=== PATIENT | male | born 1975 | race Caucasian/White ===

== ENCOUNTER 2016-11-22 21:26 | Emergency (ER) | payer BC ==
[2016-11-22 23:14] LABS: Hematocrit 44 % (42-52); Hemoglobin 14.4 g/dl (14.0-18.0); Mean Corpuscular HGB Conc 33 g/dl (31-36); Mean Corpuscular Hemoglobin 30 pg (27-31); Mean Corpuscular Volume 91 fL (80-94); Mean Platelet Volume 10 um3 (7.4-10.4); Red Blood Count 4.84 10^6/ul (4.0-5.4); Red Cell Distribution Width 14 % (10.5-15)
[2016-11-22 23:19] LABS: Comments Flag Yes
[2016-11-22 23:22] LABS: Add Diff/Slide Review? Slide Review Added
[2016-11-22 23:23] LABS: Albumin 3.8 g/dL (3.2-5.2); C Reactive Protein 111.62 mg/L (< 5.00); Calcium 9.1 mg/dL (8.6-10.3); EGFR African American 121.6 (>60); EGFR Non-African American 94.5 (>60); Globulin 3.7 g/dL (2-4); Magnesium 1.8 mg/dL (1.9-2.7); Total Bilirubin 0.4 mg/dL (0.2-1.0); Total Protein 7.5 g/dL (6.4-8.9)
[2016-11-22 23:49] LABS: Potassium 3.8 mmol/L (3.5-5.0)
[2016-11-22] MEDS ORDERED: Iohexol 300* (CONTRAST) 10 ML SDV IV ONE (23:50)
--- NOTE | 2016-11-23 00:06 | ED ---
Kelsey Garcia Edward, scribed for Yuan Mike MD on 11/22/16 at 2231 . ED Suture/Wound Check - HPI Summary HPI Summary: 41 y/o male presents to ED seeking wound recheck at his belly button. Pt c/o drainage from the site, a burning pain rated at a 2/10 at triage, and a bad odor. Starting last night, the patient has been feeling weakness, nausea, fevers and chills. Patient had a umbilical hernia repair 6.5 weeks ago ([facility]); it was re-opened 3 days ago. Five days after the surgery the vacu- drain clogged and his ABD expanded 12 inches overnight, which blew the sutures out. - History Of Current Complaint Chief Complaint: EDAbdPain Stated Complaint: SURGICAL SITE NEEDS CHECKING Time Seen by Provider: 11/22/16 22:24 Hx Obtained From: Patient Severity: Mild Pain Intensity: 2 Pain Scale Used: 0-10 Numeric - Allergies/Home Medications Allergies/Adverse Reactions: Allergies Allergy/AdvReac Type Severity Reaction Status Date / Time Doxycycline Allergy Hives Verified 11/22/16 21:37 Sulfamethoxazole Allergy Hives Verified 11/23/16 08:20 w/Trimethoprim [From Bactrim] Home Medications: Home Medications Ibuprofen [Ibuprofen 200 MG] 200 mg PO TID PRN 11/23/16 [History Confirmed 11/23] PMH/Surg Hx/FS Hx/Imm Hx Previously Healthy: No Musculoskeletal History: Denies: Hx Scoliosis Neurological History: Denies: Hx Headaches, Other Neuro Impairments/Disorders - Surgical History Surgery Procedure, Year, and Place: hernia repair. lithotripsy/left stent insertion Infectious Disease History: No Infectious Disease History: Denies: Traveled Outside the US in Last 30 Days - Family History Known Family History: Negative: Cardiac Disease - Social History Occupation: Employed Full-time Lives: With Family Alcohol Use: None Hx Substance Use: No Substance Use Type: Reports: None Review of Systems Positive: Fever, Chills Eyes: Negative ENT: Negative Cardiovascular: Negative Respiratory: Negative Positive: Abdominal Pain - Mild , Nausea Genitourinary: Negative Musculoskeletal: Negative Skin: Other - Surgical site on belly button- drainage and foul odor Positive: Weakness Psychological: Normal All Other Systems Reviewed And Are Negative: Yes Physical Exam Triage Information Reviewed: Yes Vital Signs On Initial Exam: Initial Vitals Temp Pulse Resp BP Pulse Ox 99.7 F 107 16 144/99 97 11/22/16 21:35 11/22/16 21:35 11/22/16 21:35 11/22/16 21:35 11/22/16 21:35 Vital Signs Reviewed: Yes Appearance: Positive: Ill-Appearing, Pain Distress - mild Skin: Positive: Warm, Other - large mid abdominal gaping wound, foul smelling purulent drainage Head/Face: Positive: Normal Head/Face Inspection Eyes: Positive: EYAL ENT: Positive: Hearing grossly normal Neck: Positive: Supple Respiratory/Lung Sounds: Positive: Breath Sounds Present Cardiovascular: Positive: Tachycardia Abdomen Description: Positive: Soft, Other: - open draining abd wound Bowel Sounds: Positive: Present Musculoskeletal: Positive: Strength/ROM Intact Neurological: Positive: Alert, Oriented to Person Place, Time Diagnostics - Vital Signs Vital Signs Temp Pulse Resp BP Pulse Ox 11/22/16 21:35 99.7 F 107 16 144/99 97 - Laboratory Lab Results: Lab Results 11/22/16 11/22/16 11/22/16 Range/Units 22:40 22:40 22:40 WBC 17.0 H (3.5-10.8) 10^3/ul RBC 4.84 (4.0-5.4) 10^6/ul Hgb 14.4 (14.0-18.0) g/dl Hct 44 (42-52) % MCV 91 (80-94) fL MCH 30 (27-31) pg MCHC 33 (31-36) g/dl RDW 14 (10.5-15) % Plt Count 254 (150-450) 10^3/ul MPV 10 (7.4-10.4) um3 Neut % (Auto) 68.8 (38-83) % Lymph % (Auto) 17.6 L (25-47) % Mercer % (Auto) 11.3 H (1-9) % Eos % (Auto) 1.9 (0-6) % Baso % (Auto) 0.4 (0-2) % Absolute Neuts (auto) 11.7 H (1.5-7.7) 10^3/ul Absolute Lymphs (auto) 3.0 (1.0-4.8) 10^3/ul Absolute Monos (auto) 1.9 H (0-0.8) 10^3/ul Absolute Eos (auto) 0.3 (0-0.6) 10^3/ul Absolute Basos (auto) 0.1 (0-0.2) 10^3/ul Absolute Nucleated RBC 0.01 10^3/ul Nucleated RBC % 0 Sodium 138 (133-145) mmol/L Potassium 3.8 (3.5-5.0) mmol/L Chloride 103 (101-111) mmol/L Carbon Dioxide 26 (22-32) mmol/L Anion Gap 9 (2-11) mmol/L BUN 15 (6-24) mg/dL Creatinine 0.88 (0.67-1.17) mg/dL Est GFR ( Amer) 121.6 (>60) Est GFR (Non-Af Amer) 94.5 (>60) BUN/Creatinine Ratio 17.0 (8-20) Glucose 98 (70-100) mg/dL Lactic Acid 1.3 (0.5-2.0) mmol/L Calcium 9.1 (8.6-10.3) mg/dL Magnesium 1.8 L (1.9-2.7) mg/dL Total Bilirubin 0.40 (0.2-1.0) mg/dL AST 15 (13-39) U/L ALT 13 (7-52) U/L Alkaline Phosphatase 56 (34-104) U/L C-Reactive Protein 111.62 H (< 5.00) mg/L Total Protein 7.5 (6.4-8.9) g/dL Albumin 3.8 (3.2-5.2) g/dL Globulin 3.7 (2-4) g/dL Albumin/Globulin Ratio 1.0 (1-3) Result Diagrams: 11/22/16 22:40 11/22/16 22:40 Lab Statement: Any lab studies that have been ordered have been reviewed, and results considered in the medical decision making process. - CT ABD/PEL CT CT Interpretation: Positive (See Comments) - Inflammatory collection in the subcutaneous tissues deep to the incisional wound appears to represent an incompletely formed abscess. This process is amenable to percutaneous aspiration /drainage. CT Interpretation Completed By: Radiologist Course/Dx - Course Assessment/Plan: 41 y/o male presents to ED seeking wound recheck at his belly button. Pt c/o drainage from the site, a burning pain rated at a 2/10 at triage , and a bad odor. Starting last night, the patient has been feeling weakness, nausea, fevers and chills. Patient had a umbilical hernia repair 6.5 weeks ago ( [facility]); it was re-opened 3 days ago. Five days after the surgery the vacu-drain clogged and his ABD expanded 12 inches overnight, which blew the sutures out. ABD/PEL CT shows an inflammatory collection in the subcutaneous tissues deep to the incisional wound appears to represent an incompletely formed abscess. This process is amenable to percutaneous aspiration/drainage. Discussed case with Dr. Miles Gates (Surgery) at 01:45. Awaiting Dr. Gates consult. Patient will be signed out to Dr. Amezquita at shift change. - Clinical Impression Provider Diagnoses: Abscess of postoperative wound of abdominal wall - Physician Notifications Discussed Care Of Patient With: Miles Gates Time Discussed With Above Provider: 01:45 Discharge - Discharge Plan Condition: Stable Disposition: HOME Discharge Disposition Comment: Sign out to Dr. Amezquita at shift change. Awaiting Dr. Gates consult Prescriptions: Ciprofloxacin TAB* [Cipro Tab*] 500 mg PO BID #20 tab Patient Education Materials: Wound Infection (ED) Referrals: Miles Gates MD [Medical Doctor] - Omar Robertson MD [Medical Doctor] - Additional Instructions: Keep your appointment with your surgeon tomorrow. The documentation as recorded by the Kelsey borjas Edward accurately reflects the service I personally performed and the decisions made by , Yuan Mike MD.
[2016-11-23] MEDS ORDERED: Vancomycin(*) 1,000 MG in NS 0.9% 250 ML* 250 ML IVPB ONE (01:09)
--- NOTE | 2016-11-23 08:02 | RAD ---
CLINICAL HISTORY: Rule out abdominal abscess, history of surgery for umbilical hernia and healing problems COMPARISON: September 22, 2016 TECHNIQUE: Multiple contiguous axial CT scans were obtained of the abdomen and pelvis after the administration of intravenous contrast. Coronal and sagittal multiplanar reformations are submitted for review. Oral contrast was administered. Delayed images were obtained through the abdomen and pelvis. FINDINGS: LUNG BASES: The lung bases are clear. LIVER: The liver is diffusely low in attenuation compared to the spleen. There are no focal hepatic parenchymal masses. BILE DUCTS: There is no intrahepatic or extrahepatic biliary dilatation. GALLBLADDER: The gallbladder is normal, without pericholecystic inflammatory change. PANCREAS: The pancreas is normal, without mass or ductal dilatation. SPLEEN: Normal in size and appearance. UPPER GI TRACT: Evaluation of the gastrointestinal tract is limited by incomplete gastric distention. The upper GI tract is unremarkable. SMALL BOWEL AND MESENTERY: The small bowel is normal in contour, course, and caliber. There is no obstruction or dilatation. COLON: The colon is normal in contour, course, caliber. There is no pericolonic inflammatory change. ADRENALS: Normal bilaterally. KIDNEYS: The kidneys are normal in shape, size, contour, and axis. There is no hydronephrosis or nephrolithiasis. BLADDER: The bladder is smooth in contour. PELVIC ORGANS: The prostate gland is normal. The seminal vesicles are symmetric. AORTA: The aorta is normal. IVC: Unremarkable LYMPH NODES: There is no lymphadenopathy by size criteria. ABDOMINAL WALL: There is a defect of the anterior abdominal wall consistent with a dehiscent surgical wound given the history. This defect to a loculated fluid collection measuring approximately 8.5 x 6.5 x 3.8 cm in size. Superficial to the anterior abdominal wall musculature. Additionally, there is a small fat containing ventral hernia superior to the umbilicus. There is mild stranding of the mesenteric fat just distal to the hernia. There is a small fat-containing inguinal hernia on the left. BONES AND SOFT TISSUES: As noted above, there is no loculated fluid collection. Degenerative changes noted of the spine. OTHER: None IMPRESSION: 1. DIFFUSE IMPROVEMENT OF THE ANTERIOR ABDOMINAL WALL COMMUNICATING WITH A LOCULATED FLUID COLLECTION MEASURING UP TO 8.5 CM IN SIZE, CONCERNING FOR ABSCESS, SUPERFICIAL TO THE ANTERIOR ABDOMINAL WALL. 2. ADDITIONALLY, THERE IS A SMALL FAT-CONTAINING VENTRAL HERNIA SUPERIOR TO THE UMBILICUS WITH INFLAMMATORY CHANGE OF THE MESENTERIC FAT ALONG THE HERNIA.. 3. FATTY LIVER
[2016-11-23 09:05] VITALS: BP 134/85
--- NOTE | 2016-11-23 23:05 | CONS ---
CC: Dr. Jeanna Deleon, General Surgeon, [place], [place]; [facility]; [facility]; [facility] * CONSULTATION REPORT/PROCEDURE REPORT: DATE OF CONSULT: 11/23/16 The patient seen in the emergency room. HISTORY OF PRESENT ILLNESS: I was contacted overnight by the emergency room in order to evaluate Mr. Ervin, a 41-year-old gentleman, who presents to the emergency room with complaints of malaise and foul-smelling drainage from the abdominal wound. Workup in the emergency room included labs which showed an elevated white blood cell count as well as a CT scan. The patient underwent an open ventral hernia repair with mesh approximately 6 months ago for a recurrent umbilical hernia. This was done at the [facility]. The patient's postoperative course has been complicated with wound dehiscence. He has gone through at least 2 courses of antibiotics, wound care that has included a vacuum dressing. The patient had visiting nurses and now continues to follow up at his surgeon's office for vacuum dressing changes. The patient had to go on a trip to [place] as a family obligation and took as much dressing material as he could. When he started having symptoms of discomfort and concerns for a possible infection, he called his trip short and drove back home, stopping in [place] at the hospital. The patient describes a course of his postoperative care with pictures and descriptions where the wound showed mild cellulitic changes as well as skin necrosis that required debridement in the surgeon's office. The patient denies any GI symptoms. He denies any fevers. He had a low-grade fever in the emergency room. His general complaint again is malaise and just feeling run down. It is not clear if he has had any night sweats. PAST MEDICAL HISTORY: Morbid obesity. The patient does not have diabetes. PAST SURGICAL HISTORY: As described above. MEDICATION LIST: Reviewed. SOCIAL HISTORY: The patient is a nonsmoker, works as a echocardiography radiology technologist. He has been out of work because of this. REVIEW OF SYSTEMS: No fever, no chills. No shortness of breath or chest pain. No GI symptoms. No dysuria or change in bowel habits. Abdominal pain mostly in the upper abdomen. No bleeding or clotting disorders. The patient has lost about 40 pounds in the last year and he has been trying to lose it. No metabolic or endocrine disorders. PHYSICAL EXAM: The patient had a low-grade temperature, he is currently afebrile. Vital signs are stable. He had tachycardia upon arrival, currently his heart rate is in the 90s. He is alert and oriented x3, he is in no apparent distress, lying in the stretcher, comfortable. Head, Eyes, Ears, Nose , and Throat: Normocephalic and atraumatic. Sclerae anicteric. Mucous membranes are dry. Abdomen is soft, obese. Dressing removed, midline incision shows dehiscence with an open abdominal wound that measures 18 x 7 x 9 cm deep, it extends through subcutaneous fat and down to the muscle layer. Sutures appreciated. Sterilely, this area was examined and Yankauer suction placed and fluid removed. The wound was then irrigated. It was bluntly opened at the superior aspect and somewhat at the inferior aspect at the subcutaneous fat level to allow for better visualization of the base of the wound, which showed again fascia and rectus muscle minimally exposed. It tunnels in the superior aspect and the blunt opening of this subcutaneous adipose tissue made for better evaluation. I could not probe into the abdomen. No mesh was identified. Some necrotic fat along the left side of the incision site, this was not debrided. No foul-smelling drainage at this time. Periwound skin is intact without erythema or dermatitis. Rectal exam not performed. Extremities within normal limits. DIAGNOSTIC STUDIES/LAB DATA: Labs reviewed. CT scan reviewed showing a fluid collection at the base of this wound that was suctioned off just now. Intraabdominally, no evidence of bowel inflammation. IMPRESSION: Surgical site dehiscence in a gentleman with recurrent hernia and obesity. He does represent a high risk for wound infection recurrence. Currently no mesh is exposed and I described that this may not have to be removed and this is our hope. I discussed this case with his surgeon who is going to see him later today. The wound was redressed with vacuum dressing by me. I placed a white foam dressing followed by black foam dressing, and connected to 125 mmHg, KCI vacuum- type dressing canister. PLAN/RECOMMENDATIONS: Topical wound care. The patient may benefit from Iodosorb if he persists with a possible pseudomonas infection. This does not show evidence of pseudomonas infection at this time, but I did see evidence on photos. The patient did go home on antibiotics and recommended Cipro for now. He could follow up with Infectious Disease for possible PICC placement. If this is necessary, he could certainly follow up at the wound center at [facility] by me and we could follow his wound care with regular vacuum dressings. If not cleared, the patient will need surgery in the future, but certainly now it would not be the appropriate time. The patient is hemodynamically stable despite elevated white blood cell count and is okay for discharge. This case was discussed with the emergency room physician and with the patient's surgeon. TIME SPENT: Overall, approximately 65 minutes were spent with the patient going over the plan of care, and additional time for discussion with the patient 's doctors. [id number]/[facility] #: [id number] JJ
--- NOTE | 2016-11-24 09:04 | PN ---
Progress Note - Progress Note Date of Service: 11/22/16 Note: Patient was seen in ED for post-surgical wound re-check and discharged on cipro. Wound culture PCR was negative for MRSA and staph aureus. No further changes needed at this time.
--- NOTE | 2016-11-26 10:01 | PN ---
Progress Note - Progress Note Date of Service: 11/22/16 Note: Patient started on cipro for wound at d/c. culture results showed positive enterococcus faecalis and pseudomonas aeruginosa 2+. bacteria susceptible to cipro. aeruginosa is intermediate. no other antimicrobial agents to switch too besides IV medications. Patient has had improvement when spoken to at 10am. states he is following up with surgery and wound clinic. given names of bacteria for follow up care purposes. had pic line placed and has had two doses of Invanz (ertapenam) which drugs in the same class did show susceptibility by bacteria. No further change needed at this time. Aware of worsening signs and symptoms to watch out for.
--- NOTE | 2016-11-27 08:32 | ED ---
Progress - Progress Note Progress Note: Pt's wound reveals staph aureus (already noted) - pseudomonas aeruginosa and enterococcocus faecalis - pt was started on cipro which is appropriate coverage. Note indicates this cx from a post-op wound and Dr. Gates consulted and referred to [facility] clinic but pt has not f/u'd up outpt as his inurance is not accepted at [facility]'s office. He followed-up with his original surgeon who he reports reluctantly referred him to [place] wound [facility] and an order for a PICC line. Pt requesting results go to both [facility] wound clinic as well as [facility] as he hasn't heard back from [place] yet and may go to [facility] instead. Feeling okay today - aware of danger s/sx of when to return to ED. Course/Dx - Diagnoses Provider Diagnoses: Abscess of postoperative wound of abdominal wall - Provider Notifications Time Discussed With Above Provider: 01:45 Instructed by Provider To: Admit As Inpatient - Discuss with the hospitalist
== END 2016-11-23 09:12 | disposition home or self-care (01) ==
LOC: ED 21:26
DX: T81.4XXA Infection following a procedure, initial encounter (principal); L02.211 Cutaneous abscess of abdominal wall; R50.9 Fever, unspecified; R11.0 Nausea; R53.1 Weakness; Z88.1 Allergy status to other antibiotic agents; Z88.2 Allergy status to sulfonamides
CPT/HCPCS: 36415; 74177; 80053; 83605; 83735; 85025; 86140; 87070; 87077; 87186; 87205; 87640; 87641; 96365; 96366; 99283; J2543; J3370; Q9967

== ENCOUNTER 2016-12-13 20:40 | Emergency (ER) | payer BC ==
[2016-12-13 20:47] VITALS: BP 146/102
--- NOTE | 2016-12-13 23:41 | ED ---
ICristi,Joelle, scribed for Yuan Mike MD on 12/13/16 at 2200 . Complex/Multi-Sys Presentation - HPI Summary HPI Summary: This 41 y/o male presents to ED for drainage/bleeding from abd wound since today PM. PMHx includes recurrent umbilical hernia s/p open ventral hernia surgery about 6 months ago. Pt was previously evaluated and had debridemnet done by Dr. Gates in ED on 11/22/2016 for foul-smelling drainage from the surgery wound. Pt visited the wound clinic today to have wound vac and packing done, and noted blood draining from the wound after the appointment. - History Of Current Complaint Chief Complaint: EDGeneral Time Seen by Provider: 12/13/16 21:48 Hx Obtained From: Patient, Medical Records Onset/Duration: Sudden Onset, Still Present Timing: Constant - Allergies/Home Medications Allergies/Adverse Reactions: Allergies Allergy/AdvReac Type Severity Reaction Status Date / Time Doxycycline Allergy Hives Verified 11/22/16 21:37 Sulfamethoxazole Allergy Hives Verified 11/23/16 08:20 w/Trimethoprim [From Bactrim] PMH/Surg Hx/FS Hx/Imm Hx Endocrine/Hematology History: Denies: Hx Diabetes GI History: Reports: Other GI Disorders - Recurrent umbilical hernia s/p mesh placement and surgery History: Reports: Hx Kidney Stones Musculoskeletal History: Denies: Hx Scoliosis Neurological History: Denies: Hx Headaches, Other Neuro Impairments/Disorders - Surgical History Surgery Procedure, Year, and Place: hernia repair. lithotripsy/left stent insertion Infectious Disease History: No Infectious Disease History: Denies: Traveled Outside the US in Last 30 Days - Family History Known Family History: Negative: Cardiac Disease - Social History Alcohol Use: None Hx Substance Use: No Substance Use Type: Reports: None Hx Tobacco Use: No Smoking Status (MU): Never Smoked Tobacco Review of Systems Negative: Fever Positive: Other - open abd wound secondary to open ventral hernia surgery, bleeding All Other Systems Reviewed And Are Negative: Yes Physical Exam Triage Information Reviewed: Yes Vital Signs On Initial Exam: Initial Vitals Temp Pulse Resp BP Pulse Ox 97.9 F 88 16 146/102 98 12/13/16 20:46 12/13/16 20:46 12/13/16 20:46 12/13/16 20:46 12/13/16 20:46 Vital Signs Reviewed: Yes Appearance: Positive: No Pain Distress, Obese Skin: Positive: Warm, Other - slightly oozing, healing granulating mid abd wall abscess Eyes: Positive: EYAL ENT: Positive: Hearing grossly normal Neck: Positive: Supple Respiratory/Lung Sounds: Positive: Breath Sounds Present Cardiovascular: Positive: RRR Abdomen Description: Positive: Nontender, Soft Bowel Sounds: Positive: Present Neurological: Positive: Alert, Oriented to Person Place, Time Diagnostics - Vital Signs Vital Signs Temp Pulse Resp BP Pulse Ox 12/13/16 20:46 97.9 F 88 16 146/102 98 - Laboratory Lab Statement: Any lab studies that have been ordered have been reviewed, and results considered in the medical decision making process. Re-Evaluation - Re-Evaluation First Eval Change: Improved - wound repacked Complex Multi-Symp Course/Dx Assessment/Plan: This 41 y/o male presents to ED for bleeding from chronic surgery wound on ventral abd. PMHx is significant for recurrent umbilical hernia s/p ventral hernia repair at [place]. Pt was last seen on 11/22/[address] Ma for foul-smelling drainage from the wound. Blood work is offered to r/ o any infection and to see if pt is hemodynamically stable, but pt refuses and only wants wound cleaning. Pt remains stable during ED course, and is discharged after wound cleaning. - Diagnoses Provider Diagnoses: Abdominal wall abscess Discharge - Discharge Plan Condition: Stable Disposition: HOME Patient Education Materials: Chronic Wound Care (ED) Referrals: Philippe Mosley MD [Primary Care Provider] - 2 Days The documentation as recorded by the Cristi borjas Soohyun accurately reflects the service I personally performed and the decisions made by , Yuan iMke MD.
== END 2016-12-13 23:55 | disposition home or self-care (01) ==
LOC: ED 20:40
DX: L02.211 Cutaneous abscess of abdominal wall (principal); Z98.890 Other specified postprocedural states; Z88.1 Allergy status to other antibiotic agents; Z88.2 Allergy status to sulfonamides; Z87.442 Personal history of urinary calculi
CPT/HCPCS: 99282